=== PATIENT | male | born 1930 | race Caucasian/White ===

== ENCOUNTER → 2017-01-16 13:28 | Outpatient (CLI) | payer MEDICARE ==
[2016-05-04 11:22] VITALS: BMI 28.9
[~2017-01-16 13:28] MED LIST: ALLEGRA-D1 TAB.SR . PO; COREG12.5 MG PO; ELIQUIS5 MG PO; FOLIC ACID1 MG PO; FORTAMET1000 MG/BO PO; FORTAMET500 MG/BOT PO; GLUCOTROL 5 MG T5 MG PO; JANTOVEN2.5 MG PO; K-DUR20 MEQ PO; LASIX20 MG PO; PACERONE200 MG PO; ZOCOR10 MG PO
== END | disposition home or self-care (01) ==
LOC: D.US 13:28
DX: I65.23 Occlusion and stenosis of bilateral carotid arteries (principal)

== ENCOUNTER 2017-04-25 05:40 | Day surgery (SDC) | payer MEDICARE ==
[~2017-04-25 05:40] MED LIST changes: +LISINOPRIL5 MG PO; +PRADAXA150 MG PO; +PROTONIX40 MG PO
[2017-04-25 06:25] LABS: BASOPHILS 0.3 % (0-2); EOSINOPHILS 1.9 % (0-7); HEMATOCRIT 32.7 % (42.0-54.0); LYMPHOCYTES 26.3 % (15-50); MCH 32.5 pg (26.0-34.0); MCHC 33.6 g/dL (31.0-37.0); MCV 96.7 fL (80.0-100.0); MEAN PLATELET VOLUME 10.2 fL (7.4-10.4); MONOCYTES 13.3 % (2-11); NEUTROPHILS 58.2 % (40-80); PLATELET COUNT 136 10x3/uL (130-400); RBC 3.38 10x6/uL (4.20-6.10); RDW 13.9 % (11.5-14.5); WBC 3.8 10x3/uL (4.8-10.8)
[2017-04-25 06:38] LABS: ANION GAP 13.8 mmol/L (8-16); CALCIUM 8.5 mg/dL (8.5-10.1); CARBON DIOXIDE 28.6 mmol/L (21.0-32.0); CREATININE - SERUM 1.3 mg/dL (0.6-1.3); POTASSIUM - SERUM 4.4 mmol/L (3.5-5.1)
[2017-04-25 06:41] VITALS: BP 118/51; BMI 25.1
[2017-04-25 06:50] LABS: APTT 25.2 SECONDS (22.8-39.4); INR 0.98 (0.85-1.17); PROTIME 12.8 SECONDS (11.6-15.0)
--- NOTE | 2017-04-25 13:28 | NUR ---
1325 DISCHARGE INSTRUCTIONS COMPLETE. PT HAS NO QUESTIONS OR CONCERNS AT THIS TIME. BP UP TO 100/42 AFTER GIVING ROBINUL. THIS IS HIS BASELINE PER PATIENT. PRESCRIPTION FOR DEMEROL GIVEN. ESCORTED OUT BY ZHAO LANCASTER.
--- NOTE | 2017-04-26 10:04 | HP ---
PATIENT: PRAVEEN JACKSON MEDICAL RECORD: [id number] ACCOUNT: [id number] LOCATION:SHY : 32 ADMISSION DATE: 04/25/17 HISTORY AND PHYSICAL EXAMINATION CHIEF COMPLAINT: Cancer. HISTORY: The patient has had several metastatic lesions to the skin. These have been metastatic testicular lymphomas. The patient has another one involved in the left upper extremity. This can be better quantified in the operative note. The risks, possible complications, and alternatives to the procedure were explained to the patient. He elects to proceed. PAST MEDICAL AND SURGICAL HISTORY: Atrial fibrillation with normal ventricular response; history of prostate cancer; history of testicular lymphoma; history of bladder cancer; history of pilonidal cyst; history of orchiectomies; history of right trigger finger operation; history of colon cancer with a minimally invasive resection; history of a number of back operations; history of some type of hepatitis in the past; noninsulin-dependent diabetes mellitus; osteoarthritis; gastroesophageal reflux, which is controlled; history of atrial fib/atrial flutter; coronary artery disease; hypertension; sleep apnea, on CPAP; and hyperlipidemia. SOCIAL HISTORY: Ex-smoker. ALLERGIES: PENICILLIN, MORPHINE, HYDROCODONE, OXYCODONE, TYLENOL, AND ASPIRIN. HE STATES THAT HE CANNOT TAKE DEMEROL. HOME MEDICINES: Zocor, Protonix, amiodarone, Pradaxa, metformin, lisinopril, folic acid, and fexofenadine. PHYSICAL EXAMINATION: GENERAL: The patient does not appear acutely ill. He does not appear chronically ill. VITAL SIGNS: Reviewed. EARS: External ears appear normal. EYES: Extraocular movements are intact. NECK: Trachea is in midline. CHEST: No intercostal retractions. PULMONARY: Nonlabored. No stridor. INTEGUMENT: An indurated and raised area involving the left forearm on the dorsal aspect as described above. IMPRESSION: Probable metastatic lesion to the skin at the left forearm. PLAN: Wide excision with frozen section. TRANSINT:[id number] Voice Confirmation ID: [id number] DOCUMENT ID: [id number] CC: Dr. Gill Valdivia, HISTORY AND PHYSICAL [id number] RENETTAPRAVEEN WADE FELIPA PEACOCK MD at 1004 CC: DR. GILLROLAN Figueroa [id number] DICTATION DATE: 04/25/17 1026 [facility] S[facility]TER: 04/25/17 1227 [facility] [place] 04/25/17 [facility] [address] [place] [address]
--- NOTE | 2017-04-26 10:04 | OP ---
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 Please see dimensions below. 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 The lesion measured 3.2 x 2.9 cm and was fairly infiltrative. The dimensions of the excision, including margins, was 11.2 x 6.0 cm. This was an intermediate closure. SURGEON: Felipa Peacock MD BALLROOM DANCE INSTRUCTOR: None. BLOOD LOSS: Minimal. ANESTHESIA: General. COMPLICATIONS: None. The risks, possible complications and alternatives to procedure were explained to the patient. He elects to proceed. OPERATIVE COURSE: The patient was conveyed to the operating room electively on 04/25/2017. General anesthesia was induced by the anesthesia staff. The left upper extremity was abducted 90 degrees to the patient's trunk. The left upper extremity was sterilely prepped and draped. The dimensions were taken. Through the use of double curvilinear incisions, I excised the skin and subcutaneous tissue around the mass. It was oriented with sutures. It was sent for frozen section analysis. The analysis revealed that the superior and inferior margins were positive. I then went back to the operating room. I reexcised the superior and inferior margins. These were marked with silk sutures. This revealed that the inferior margin was free of tumor; however, the superior margin still contained tumor. I then reexcised the superior margin. It was oriented with a silk suture. The tissue was sent for frozen section examination, which revealed that we had a free margin. Subcutaneous flaps were created sharply in the proximal, distal, superior and inferior directions. Meticulous hemostasis was achieved with electrocautery. As there was some question about the deep margin being positive, I excised all the subcutaneous tissue within the excised defect down to the investing fascia of the forearm. The subdermis was approximated with interrupted 3-0 Vicryls. The skin was approximated with multiple interrupted vertical mattress 3-0 nylons. A sterile dressing was applied. The patient was then extubated and conveyed to post-anesthesia care unit where he was in stable condition. The patient had an adequate hand horticultural farm manager on the left. No numbness or paresthesias involving the left upper extremity. The wound is fairly tight and is at risk for pressure necrosis. I will see the patient in my office in 2-3 weeks for suture removal. He was dismissed home on Demerol for pain. OPERATIVE REPORT [id number] PRAVEEN JACKSON TRANSINT:[id number] Voice Confirmation ID: [id number] DOCUMENT ID: [id number] CC: Dr. Gill Valdivia, FELIPA PEACOCK MD at 1004 CC: DR. GILL VALDIVIA and ROLAN HUERTA [id number] DICTATION DATE: 04/25/17 170 CABLE INSTALLATION MANAGER: 04/25/17 182 [facility] 04/25/17 [place] [id number] [place] [address]
== END 2017-04-25 13:25 | disposition home or self-care (01) ==
LOC: D.OPS 05:40 → D.PAN 12:00 → D.OPS 12:00
PROVIDERS: Anesthesiology
DX: C85.94 Non-Hodgkin lymphoma, unspecified, lymph nodes of axilla and upper limb (principal); Z85.47 Personal history of malignant neoplasm of testis; Z85.46 Personal history of malignant neoplasm of prostate; Z85.51 Personal history of malignant neoplasm of bladder; Z85.038 Personal history of other malignant neoplasm of large intestine; L57.8 Other skin changes due to chronic exposure to nonionizing radiation; I48.91 Unspecified atrial fibrillation; E11.9 Type 2 diabetes mellitus without complications; M19.90 Unspecified osteoarthritis, unspecified site; K21.9 Gastro-esophageal reflux disease without esophagitis; I25.10 Atherosclerotic heart disease of native coronary artery without angina pectoris; I10 Essential (primary) hypertension; G47.30 Sleep apnea, unspecified; E78.5 Hyperlipidemia, unspecified; Z87.891 Personal history of nicotine dependence; Z79.84 Long term (current) use of oral hypoglycemic drugs; Z79.899 Other long term (current) drug therapy; Z88.6 Allergy status to analgesic agent; Z88.5 Allergy status to narcotic agent; Z88.0 Allergy status to penicillin